=== PATIENT | female | born 1985 | race Asian ===

== ENCOUNTER 2023-09-22 09:00 | Outpatient (AMB) | payer OTHER, SELFPAY ==
[2023-09-22 09:01] VITALS: BP 110/74; BMI 24.2
--- NOTE | 2023-09-22 09:01 | MHC.OFFVIS ---
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 Patient reports that she is 38 years old she has never been but she has been trying to get for 10 years she was for about 8 years and did not get and she has been in a relationship that she says is a good 1 for the last year and has been trying to get but has not achieved it. She says she gets periods every 28 days they last 7 days her last period was September 15 and it just ended yesterday. Sometimes 1 month it will be very heavy with clots and some months it has a little bit sewing trimmer. She says she has gone to places in [place] and it sounded like [facility] in [place] but that was unclear as she was having trouble remembering the name of the place and it later sounded like she was trying to describe [facility] in various different sites including [place] and [place]. She said she had pre cancerous cells gynecological but she said the last 2 Pap smears were good. She tells me she is bipolar with depression and was just hospitalized for 10 days at [facility] for this. She was started on new medications and she was told by the doctor that it would be good not to get just yet because the medications are new and strong. She missed a follow-up appointment for psychological counseling last week but she is going tomorrow to see her primary care provider and will be arranging the other follow-up appointment or it may have already been arranged but that is in [place]. 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 She has been trying to get for years and this is her main concern today. I informed her that we do not have for infertility services here but that [facility] the system she was referred from does have infertility services and that that is where she needs to be referred to and that she should probably not waste anymore time but she should be seen there how ever I recommend that she use condoms right now in the meantime until such time as she is stable on her new psych medications and it is clear from the prescribing physician that that would be a permissible thing to do on the particular medication she may be on at the time. I informed the patient that I would place a referral but it would probably not go through as that probably needs to come from her primary care provider in the 1st place but I will place that today as a guide for her primary care provider. She needs to be referred to [facility] reproductive endocrinology. System was reviewed and there are no records of any Pap smear anywhere so even though she says her last Pap smear was negative with her history of precancerous cells and the fact that we do not have records I am going to proceeding do a Pap smear as well as testing for STIs today. [facility] Surgical History (Updated 09/22/23 @ 09:06 by Bhumi Cherry MA) [place] teeth removed Family History (Updated 09/22/23 @ 09:06 by Bhumi Cherry MA) Paternal Grandfather Throat cancer Social History (Updated 09/22/23 @ 09:05 by Bhumi Cherry MA) Household Members: Significant Other Housing: House Alcohol intake: current Alcohol intake frequency: holidays/special occasions only e-Cigarette/Vaping Use: Currently Using Female Reproductive History Menstrual Age of Menarche: 17 Duration of menses: 6-7 days Date of last menstrual period: 09/14/23 control method: none Total pregnancies: 0 History of abnormal pap smear: Yes Physical Exam Vital Signs: Last Vital Signs BP 110/74 09/22/23 09:01 BMI result Body Mass Index 24.2 Const General: healthy appearing, comfortable, no acute distress, well developed and alert Nutritional Appearance: average body habitus Orientation/consciousness: patient oriented x3 Limitations: no limitations HEENT Head: Yes normocephalic Neck Neck: Yes normal visual inspection Thyroid: Thyroid normal Chest Chest palpation & inspection: normal inspection of the chest Breast/axilla inspection: normal inspection of the breasts and normal inspection of the axillae Breast/axilla palpation: normal palpation of the breasts and normal palpation of the axillae Resp Effort & Inspection: normal respiratory effort GI Inspection: Yes normal to inspection, No Abdominal wall edema and No distended Palpation (GI): Soft to palpation and nontender Other: Vagina pink moist cervix nulliparous pink moist smooth Pap done cultures taken uterus anteverted mobile nontender adnexa nontender good tone with Kegel General: Yes bladder normal to palpation External Female Exam: normal external appearance and normal appearance of the urethra Speculum Exam - Vagina: normal appearance of the vagina, normal palpation and normal vaginal discharge Speculum Exam - Cervix: normal appearance of the cervix, normal palpation and nontender Bimanual exam- vagina & uterus: normal bimanual exam, normal palpation, uterine size normal, bladder normal to palpation, consistency normal, normal palpation, uterine mobility normal, uterine shape normal, No Cervical tenderness present, non-tender and no cervical motion tenderness Bimanual Exam- Adnexa, other: normal adnexae, no masses, normal and No adnexal tenderness Neuro General: patient oriented x3 Results Reviewed Results Reviewed: There are no pertinent results available for this patient in the system. There is the primary care note from May from [place] Assessment & Plan Assessment & Plan (1) Encounter for well woman exam with routine gynecological exam: Code(s): Z01.419 - Encounter for gynecological examination (general) (routine) without abnormal findings (2) Hx of infertility: Code(s): Z87.42 - Personal history of other diseases of the female genital tract (3) Hx of abnormal cervical Pap smear: Code(s): Z87.42 - Personal history of other diseases of the female genital tract Plan Patient has been referred here from her primary care provider in [facility] system. Patient reports that she is 38 years old she has never been but she has been trying to get for 10 years she was for about 8 years and did not get and she has been in a relationship that she says is a good 1 for the last year and has been trying to get but has not achieved it. She says she gets periods every 28 days they last 7 days her last period was September 15 and it just ended yesterday. Sometimes 1 month it will be very heavy with clots and some months it has a little bit sewing trimmer. She says she has gone to places in [place] and it sounded like [facility] in [place] but that was unclear as she was having trouble remembering the name of the place and it later sounded like she was trying to describe planned parenthood in various different sites including [place] and [place]. She said she had pre cancerous cells gynecological but she said the last 2 Pap smears were good. She tells me she is bipolar with depression and was just hospitalized for 10 days at [facility] for this. She was started on new medications and she was told by the doctor that it would be good not to get just yet because the medications are new and strong. She missed a follow-up appointment for psychological counseling last week but she is going tomorrow to see her primary care provider and will be arranging the other follow-up appointment or it may have already been arranged but that is in [place]. 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 She has been trying to get for years and this is her main concern today. I informed her that we do not have for infertility services here but that [facility] the system she was referred from does have infertility services and that that is where she needs to be referred to and that she should probably not waste anymore time but she should be seen there how ever I recommend that she use condoms right now in the meantime until such time as she is stable on her new psych medications and it is clear from the prescribing physician that that would be a permissible thing to do on the particular medication she may be on at the time. I informed the patient that I would place a referral but it would probably not go through as that probably needs to come from her primary care provider in the 1st place but I will place that today as a guide for her primary care provider. She needs to be referred to [facility] reproductive endocrinology. System was reviewed and there are no records of any Pap smear anywhere so even though she says her last Pap smear was negative with her history of precancerous cells and the fact that we do not have records I am going to proceeding do a Pap smear as well as testing for STIs today. ----- Patient was referred here,(to [facility]) from a [facility] practice, however we do not have infertility services. Patient is 38 years old and says she has been trying to get for more less 10 years. She has regular cycles. Referral was placed to [facility] reproductive Medicine however her primary probably needs to be the 1 to make the official referral I have written this down on a piece of paper for the patient in case her records do not arrive at her primary care provider tomorrow when she has an appointment with that provider and I stressed the importance of her asking that provider for the referral. In addition and most importantly I asked the patient to actually refrain from getting at the this moment until she is very stable on her new medications and gets the all clear from the psychiatric prescriber that it is okay to get on the particular meds and doses that she has just been prescribed for her bipolar depression. The patient assures me she has in a stable relationship and things are good and she does understand but she has been trying for 10 years and wants to have a baby. I asked her to continue to keep track of her cycle as she does and also to start paying attention to the middle of her cycle to see if she has ovulatory symptoms that correspond with that time as well. Pap smear was done as well as testing for gonorrhea chlamydia trichomoniasis Gardnerella and Nicolette. No other testing was done I did prescribe her vitamins that she could be taking before conception. Orders: Orders Bacterial Vaginosis Panel Today Z01.419 - Encounter for gynecological examination (general) (routine) without abnormal findings Pap Smear Today Z01.419 - Encounter for gynecological examination (general) (routine) without abnormal findings CT NG by PCR Today Z.419 - Encounter for gynecological examination (general) (routine) without abnormal findings Referrals Infertility Reproductive Referral (female) Z87.42 - Personal history of other diseases of the female genital tract Medications: New PNV,calcium [id number] acid 27 mg iron- 1 mg ( Vitamins Plus Low Iron) 1 tab PO DAILY 90 tabs 0RF Coding Level of Care Code New Pt Prev Care 18-39yr([id number] Diagnoses Encounter for well woman exam with routine gynecological exam Z01.419 Hx of infertility Z87.42 Hx of abnormal cervical Pap smear Z87.42
== END 2023-09-22 10:24 | disposition home or self-care (01) ==
LOC: HO.HWSM 09:00
PROVIDERS: Visit Provider Advanced Practice Midwife
DX: Z01.419 Encounter for gynecological examination (general) (routine) without abnormal findings (principal); Z87.42 Personal history of other diseases of the female genital tract
CPT/HCPCS: 99385

== ENCOUNTER 2023-09-22 09:00 | Outpatient (REF) | payer OTHER, SELFPAY ==
[2023-09-23 02:42] LABS: CT PCR NOT DETECTED (Not Detect.); NG PCR NOT DETECTED (Not Detect.)
[2023-09-23 14:00] LABS: BV Int Neg Control Negative (Negative); BV Int Pos Control Positive (Positive)
[2023-09-29 21:30] LABS: HPV 16 RNA DETECTED (NOT DETECTED); HPV mRNA E6/E7 rflx Detected (Not Detected)
== END 2023-09-22 09:01 | disposition home or self-care (01) ==
LOC: HO.LNP 09:00
PROVIDERS: Visit Provider Advanced Practice Midwife
DX: Z01.419 Encounter for gynecological examination (general) (routine) without abnormal findings (principal); Z87.42 Personal history of other diseases of the female genital tract; Z79.899 Other long term (current) drug therapy
CPT/HCPCS: 0353U; 87480; 87510; 87624; 87625; 87660; 88142; 99385

== ENCOUNTER 2023-11-29 12:24 | Outpatient (REF) | payer OTHER, SELFPAY | END 2023-11-29 12:25 | disposition home or self-care (01) | LOC: HO.LNP 12:24 | PROVIDERS: Visit Provider Obstetrics & Gynecology | DX: R87.611 Atypical squamous cells cannot exclude high grade squamous intraepithelial lesion on cytologic smear of cervix (ASC-H) (principal); Z32.02 Encounter for pregnancy test, result negative | CPT/HCPCS: 57454; 81025; 88305; 88342; 88360 ==

== ENCOUNTER 2023-11-29 12:24 | Outpatient (AMB) | payer OTHER, SELFPAY ==
[2023-11-29 12:45] VITALS: BP 114/70; BMI 24.2
--- NOTE | 2023-11-29 12:45 | A.OFFVIS_ITS ---
Intake Vital Signs 11/29/23 12:45 Height 5 ft Weight 124 lb BMI 24.2 BP 114/70 Intake Visit Reasons: Colposcopy Phone Engineer Required: No Information Interpreted: non-clinical & clinical Well Point Pumping Supervisor: Well Point Pumping Supervisor Present (Aidyn) Allergies ibuprofen [From Advil] Allergy (Intermediate, Verified 11/29/23 12:46) Nausea Post menopausal: No Patient : No HPI HPI Comments History of Present Illness Details Presenting for colposcopy for ASCUS can not rule out high-grade lesion HPV E6/E7 positive, HPV 16 positive, HPV 18/45 negative PFSH Surgical History [place] teeth removed Family History Paternal Grandfather Throat cancer Social History Household Members: Significant Other Housing: House Alcohol intake: current Alcohol intake frequency: holidays/special occasions only e-Cigarette/Vaping Use: Currently Using Patient : No Female Reproductive History Menstrual Age of Menarche: 17 control method: none Date of last pap smear: 09/23/23 (ASCUS +HPV) History of abnormal pap smear: Yes Physical Exam Vital Signs: Last Vital Signs BP 114/70 11/29/23 12:45 BMI result Body Mass Index 24.2 Office Procedures Colposcopy Before the procedure was started discussed with the patient the procedure, alternatives & all the risks associated with the procedure (bleeding, infection, injury to vagina, bladder, vessels, possible need for transfusion with all its risks) then patient signed the consent UPT done in the office & negative Pap smear = ASCUS can not rule out high-grade lesion HPV E6/E7/16 positive, HPV 16/45 negative Speculum inserted, acetic acid used Colposcopy done Transformation zone seen, acetowhite lesions identified at 6 +7+9+11+12+1+3+5 o?clock, cervical biopsies taken from 6+7+9+11+12+1+3+5 o?clock, ECC done afterwards. Vaginoscopy of the upper vagina showed no evidence of any aceto-white lesions Monsel solution used for hemostasis. The patient tolerated well . At the end the patient was instructed to call if temp>100.4, abdominal pain, n/v, bleeding; The patient was given the following instructions: nothing per vagina, no intercourse or bath tub use. All questions answered the patient verbalized understanding. Instructed the patient to make an appointment in 2 weeks for follow-up This note was generated with a voice recognition program. Some errors may have been overlooked during the review of this note. Sometimes these errors may affect the content or meaning of a given sentence. [id number] of cervix including upper vagina with biopsy and ECC Procedure code (CPT) selection complete Results AMB Test Urine AMB Test Urine Negative Last Edit by LANI Santoro on 11/29/23 12:47 Results Reviewed Results Reviewed: Laboratory Last Values [facility] Clinic Negative 11/29/23 12:47 Assessment & Plan Assessment & Plan (1) Pap smear of cervix with ASCUS, cannot exclude HGSIL: Comment: HPV E6/E7/16 positive HPV 18/45 negative Code(s): R87.611 - Atypical squamous cells cannot exclude high grade squamous intraepithelial lesion on cytologic smear of cervix (ASC-H) Plan: Discussed with the patient the result of her abnormal pap, its significance, risk of progression, persistence, and regression. the false positive/negative rate of a Pap smear as a screening test in detecting cervical cancer and the indication for a diagnostic test -colposcopy, biopsy, endocervical curettage. Colpo/ECC/biopsy done, see procedure note. The patient verbalized understanding and agreed with the plan, all questions answered. Orders: Orders AMB HCG Urine Test Today Z32.02 - Encounter for test, result negative AMB Colposcopy Today R87.611 - Atypical squamous cells cannot exclude high grade squamous intraepithelial lesion on cytologic smear of cervix (ASC-H) Coding Level of Care Code Procedure Only Diagnoses Pap smear of cervix with ASCUS, cannot exclude HGSIL R87.611 CPT Codes Colposcopy - CPT: 04759-Aewysilnb of cervix including upper vagina with biopsy and ECC ([id number])
== END 2023-11-29 13:25 | disposition home or self-care (01) ==
LOC: HO.HWS 12:24
PROVIDERS: Visit Provider Obstetrics & Gynecology
DX: R87.611 Atypical squamous cells cannot exclude high grade squamous intraepithelial lesion on cytologic smear of cervix (ASC-H) (principal); Z32.02 Encounter for pregnancy test, result negative
CPT/HCPCS: 57454

== ENCOUNTER 2023-12-14 13:03 | Outpatient (AMB) | payer OTHER, SELFPAY ==
--- NOTE | 2023-12-14 13:18 | MHC.OFFVIS ---
Vital Signs 12/14/23 13:22 Height 5 ft Weight 123 lb 7.342 oz BMI 24.1 BP 102/60 Intake Visit Reasons: pre op Instructional Material Director Required: Yes Instructional Material Director Language: Cocoa Bean Cleaner Name: Kailyn [id number] Information Interpreted: non-clinical & clinical Cutter Grinder Operator: Cutter Grinder Operator Present Accompanied by: Self / Same As Patient Allergies ibuprofen [From Advil] Allergy (Intermediate, Verified 12/14/23 13:23) Nausea Is last menstrual period known: Yes Last menstrual period: 12/10/23 Post menopausal: No Patient : No Do you need a note to return to daycare/school/sports/work: Yes (for surgery on tuesday) HPI Comments Details: Presenting post colpo for follow-up. The patient is doing well with no complaints. The pathology showed the following: A. Endocervix, curettage: Endocervical glandular and squamous mucosa with marked inflammation and reactive squamous metaplasia; negative for dysplasia. B. Cervix, 1:00, biopsy: Endocervical glandular and squamous epithelium with marked inflammation and focal reactive squamous metaplasia; negative for dysplasia. C. Cervix, 3:00, biopsy: Endocervical glandular mucosa with marked inflammation and squamous metaplasia; negative for dysplasia. D. Cervix, 5:00, biopsy: Inflammatory debris only; no tissue present for evaluation. E. Cervix, 6:00, biopsy: Endocervical glandular mucosa with marked inflammation and scant squamous epithelium; negative for dysplasia. F. Cervix, 7:00, biopsy: Endocervical glandular and squamous mucosa with marked inflammation and reactive changes; negative for dysplasia. G. Cervix, 9:00, biopsy: Endocervical glandular and squamous mucosa with marked inflammation and reactive changes; negative for dysplasia. H. Cervix, 11:00, biopsy: High-grade squamous intraepithelial lesion (moderate-severe dysplasia, PARAMJIT 2-3), involving endocervical glands, with inflammation. I. Cervix, 12:00, biopsy: Endocervical glandular and squamous mucosa with marked inflammation and reactive epithelial changes; negative for dysplasia. Comment: The patient's previous Pap test with atypical squamous cells-cannot rule out a high-grade lesion ([id number]) concur with the current biopsy [facility] Surgical History [place] teeth removed Family History Paternal Grandfather Throat cancer Social History Household Members: Significant Other Housing: House Alcohol intake: current Alcohol intake frequency: holidays/special occasions only e-Cigarette/Vaping Use: Currently Using Female Reproductive History Menstrual Age of Menarche: 17 Date of last menstrual period: 12/10/23 Total pregnancies: 2 Full term: 2 Review of Systems Card Reports as per HPI and Reports no additional complaints Resp Reports as per HPI and Reports no additional complaints GI Reports as per HPI and Reports no additional complaints Reports as per HPI Physical Exam Vital Signs: Last Vital Signs BP 102/60 12/14/23 13:22 BMI result Body Mass Index 24.1 Const General: cooperative, healthy appearing and comfortable Resp Effort & Inspection: normal respiratory effort Auscultation: clear to auscultation bilaterally Percussion: percussion normal Cardio Palpation: normal PMI Rate: regular rate Rhythm: regular rhythm Heart sounds: no murmurs and no rubs Peripheral pulses: Peripheral pulses 2+ throughout GI Inspection: Yes normal to inspection Palpation (GI): Soft to palpation, nontender, no guarding, not rigid and No hepatosplenomegaly present Percussion: Yes normal to percussion Auscultation: normal bowel sounds Rectal Exam - Female: deferred Assessment & Plan Assessment & Plan (1) PARAMJIT III (cervical intraepithelial neoplasia grade III) with severe dysplasia: Code(s): D06.9 - Carcinoma in situ of cervix, unspecified Category: Medical Plan: Discussed with the patient the pathology results of the colposcopy biopsies & endocervical curettage ( moderate dysplasia-PARAMJIT 2-3). Discussed with the patient the sensitivity specificity, positive and negative predictive value in detecting cervical cancer in addition discussed the regression, persistence and progression rates. Addition discussed with the patient the risk of progression to cancer and impact of excision procedure on her future . Per ASCCP guidelines, 2 options of management were discussed with the patient including either observation with HPV based screening and colposcopy biopsy at 6 months and 12 months versus a diagnostic excisional procedures, which is the preferred method of management. The patient is concerned more about the progression of PARAMJIT 2-3 to cancer than the excisional procedure impact on her future and she decided to proceed with a LEEP, possible cone with post cone ECC. Discussed with the patient the procedure, its benefits and risks including bleeding, infection, possible need for blood transfusion with all its risk ( HIV, syphilis, Hepatitis, anaphylaxis shock, others..), injury to bladder, rectum, possible re-excision for positive margins, potential need for hysterectomy, possible future negative impact on fertility including ( cervical stenosis, incompetence , increase risk for c section 2ndary to cervical scarring and failure of dilatation), possible positive margin necessitating re-excision. Also discussed the patient options of anesthesia either paracervical block versus IV sedation/MAC, prefers to proceed with IV sedation/MAC. All questions answered, the patient verbalized understanding and signed the consent. Coding Level of Care Code Est Pt Level 3 (99505) Diagnoses PARAMJIT III (cervical intraepithelial neoplasia grade III) with severe dysplasia D06.9
[2023-12-14 13:22] VITALS: BP 102/60; BMI 24.1
== END 2023-12-14 15:26 | disposition home or self-care (01) ==
PROVIDERS: Visit Provider Obstetrics & Gynecology
DX: D06.9 Carcinoma in situ of cervix, unspecified (principal)
CPT/HCPCS: 99213

== ENCOUNTER → 2023-12-14 13:03 | Outpatient (BNVA) | payer OTHER, SELFPAY | PROVIDERS: Visit Provider Obstetrics & Gynecology | DX: D06.9 Carcinoma in situ of cervix, unspecified (principal) | CPT/HCPCS: 99212 ==

== ENCOUNTER 2023-12-26 09:52 | Outpatient (AMB) | payer OTHER, SELFPAY ==
--- NOTE | 2023-12-26 09:52 | MHC.OFFVIS ---
Intake Visit Reasons: Questions about procedure Retail Customer Service Representative Required: No Information Interpreted: non-clinical & clinical Allergies ibuprofen [From Advil] Allergy (Intermediate, Verified 12/26/23 09:52) Nausea HPI Comments Details: The patient is schedule a telehealth visit to discuss the procedure LEEP possible LEEP cone with post cone ECC for PARAMJIT 2-3 on cervical biopsy. The patient already signed her surgical consent last visit but has few more questions regarding the procedure PFSH Surgical History [place] teeth removed Family History Paternal Grandfather Throat cancer Social History Household Members: Significant Other Housing: House Alcohol intake: current Alcohol intake frequency: holidays/special occasions only e-Cigarette/Vaping Use: Currently Using Female Reproductive History Menstrual Age of Menarche: 17 Review of Systems Const All systems reviewed & are unremarkable except as noted in HPI and below Reports as per HPI and Reports no additional complaints GI Reports no additional complaints Reports no additional complaints Telehealth Telehealth Telehealth Platform: Telephone Location of provider rendering services: practice address Location of patient: address on file Patient Identification confirmed using: Name, : Yes Telehealth method: video Patient verbally consented to treatment: Yes Patient verbally consented to billing insurance company: Yes Patient informed of any privacy concerns related to visit: Yes Assessment & Plan Assessment & Plan (1) PARAMJIT III (cervical intraepithelial neoplasia grade III) with severe dysplasia: Code(s): D06.9 - Carcinoma in situ of cervix, unspecified Category: Medical Plan: Discussed with the patient the risk of PARAMJIT 2-3, persistence, progression and regression rates, an options of treatment in addition discussed with the patient the procedure, LEEP possible LEEP cone with post cone ECC, its benefits and risks. Also discussed the patient options of anesthesia either paracervical block versus IV sedation/MAC, prefers to proceed with IV sedation/MAC. All questions answered, the patient verbalized understanding and would like to proceed with the scheduled procedure. I spent a total of 20 minutes reviewing the chart, talking to the patient via video and documenting in the medical record. Coding Level of Care Code Tele Est Pt Level 1 (75930) Diagnoses PARAMJIT III (cervical intraepithelial neoplasia grade III) with severe dysplasia D06.9
== END 2023-12-26 12:11 | disposition home or self-care (01) ==
LOC: HO.HWS 09:52
PROVIDERS: Visit Provider Obstetrics & Gynecology
DX: D06.9 Carcinoma in situ of cervix, unspecified (principal)
CPT/HCPCS: 99211

== ENCOUNTER → 2023-12-26 09:52 | Outpatient (BNVA) | payer OTHER, SELFPAY | PROVIDERS: Visit Provider Obstetrics & Gynecology ==

== ENCOUNTER 2024-02-08 16:14 | Outpatient (AMB) | payer OTHER, SELFPAY ==
--- NOTE | 2024-02-08 16:16 | MHC.OFFVIS ---
Vital Signs 02/08/24 16:28 Height 5 ft Weight 123 lb 7.342 oz BMI 24.1 BP 116/64 Intake Visit Reasons: pre op Seed Buyer Required: Yes Seed Buyer Language: Certified Massage Therapist Name: Scottie #[id number] Information Interpreted: non-clinical & clinical Plaster Maker: Plaster Maker Present Allergies ibuprofen [From Advil] Allergy (Intermediate, Verified 12/26/23 09:52) Nausea Is last menstrual period known: Yes Last menstrual period: 06/19/20 Post menopausal: No Patient : No Do you need a note to return to daycare/school/sports/work: Yes (for surgery on tuesday) HPI Comments Details: Presenting post colpo for follow-up. Pap smear was ascus-H HPV E6/E7 positive, HPV 16 positive, 18/45 negative. The patient is doing well with no complaints. The pathology showed the following: A. Endocervix, curettage: Endocervical glandular and squamous mucosa with marked inflammation and reactive squamous metaplasia; negative for dysplasia. B. Cervix, 1:00, biopsy: Endocervical glandular and squamous epithelium with marked inflammation and focal reactive squamous metaplasia; negative for dysplasia. C. Cervix, 3:00, biopsy: Endocervical glandular mucosa with marked inflammation and squamous metaplasia; negative for dysplasia. D. Cervix, 5:00, biopsy: Inflammatory debris only; no tissue present for evaluation. E. Cervix, 6:00, biopsy: Endocervical glandular mucosa with marked inflammation and scant squamous epithelium; negative for dysplasia. F. Cervix, 7:00, biopsy: Endocervical glandular and squamous mucosa with marked inflammation and reactive changes; negative for dysplasia. G. Cervix, 9:00, biopsy: Endocervical glandular and squamous mucosa with marked inflammation and reactive changes; negative for dysplasia. H. Cervix, 11:00, biopsy: High-grade squamous intraepithelial lesion (moderate-severe dysplasia, PARAMJIT 2-3), involving endocervical glands, with inflammation. I. Cervix, 12:00, biopsy: Endocervical glandular and squamous mucosa with marked inflammation and reactive epithelial changes; negative for dysplasia. Comment: The patient's previous Pap test with atypical squamous cells-cannot rule out a high-grade lesion ([id number]) concur with the current biopsy [facility] Medical History (Updated 12/26/23 @ 11:44 by Rosio Barboza RN) GERD (gastroesophageal reflux disease) Hx of infertility Surgical History [place] teeth removed Family History Paternal Grandfather Throat cancer Social History Household Members: Significant Other Housing: House Alcohol intake: current Alcohol intake frequency: holidays/special occasions only e-Cigarette/Vaping Use: Currently Using Female Reproductive History Menstrual Age of Menarche: 17 Date of last menstrual period: 06/19/20 Total pregnancies: 2 Full term: 2 Review of Systems Card Reports as per HPI and Reports no additional complaints Resp Reports as per HPI and Reports no additional complaints GI Reports as per HPI and Reports no additional complaints Reports as per HPI Physical Exam Const General: cooperative, healthy appearing and comfortable Resp Effort & Inspection: normal respiratory effort Auscultation: clear to auscultation bilaterally Percussion: percussion normal Cardio Palpation: normal PMI Rate: regular rate Rhythm: regular rhythm Heart sounds: no murmurs and no rubs Peripheral pulses: Peripheral pulses 2+ throughout GI Inspection: Yes normal to inspection Palpation (GI): Soft to palpation, nontender, no guarding, not rigid and No hepatosplenomegaly present Percussion: Yes normal to percussion Auscultation: normal bowel sounds Rectal Exam - Female: deferred Assessment & Plan Assessment & Plan (1) PARAMJIT III (cervical intraepithelial neoplasia grade III) with severe dysplasia: Code(s): D06.9 - Carcinoma in situ of cervix, unspecified Category: Medical Plan: Discussed with the patient the pathology results of the colposcopy biopsies & endocervical curettage ( severe dysplasia-PARAMJIT 2-3). Discussed with the patient the sensitivity specificity, positive and negative predictive value in detecting cervical cancer in addition discussed the regression, persistence and progression rates. Addition discussed with the patient the risk of progression to cancer and impact of excision procedure on her future . Recommended excisional procedures, LEEP possible cone with post cone ECC. Discussed with the patient the procedure, its benefits and risks including bleeding, infection, possible need for blood transfusion with all its risk ( HIV, syphilis, Hepatitis, anaphylaxis shock, others..), injury to bladder, rectum, possible need for re-excision or hysterectomy for positive margins, potential need for hysterectomy, possible future negative impact on fertility including ( cervical stenosis, incompetence , increase risk for c section 2ndary to cervical scarring and failure of dilatation). ). Also discussed the patient options of anesthesia either paracervical block versus IV sedation/MAC, prefers to proceed with IV sedation/MAC . All questions answered, the patient verbalized understanding and signed the consent. Instructions given to patient to schedule a postop appointment. Coding Level of Care Code Est Pt Level 3 (13076) Diagnoses PARAMJIT III (cervical intraepithelial neoplasia grade III) with severe dysplasia D06.9
[2024-02-08 16:28] VITALS: BP 116/64; BMI 24.1
== END 2024-02-08 16:42 | disposition home or self-care (01) ==
LOC: HO.HWS 16:14
PROVIDERS: Visit Provider Obstetrics & Gynecology
DX: D06.9 Carcinoma in situ of cervix, unspecified (principal)
CPT/HCPCS: 99213

== ENCOUNTER → 2024-02-08 16:14 | Outpatient (BNVA) | payer OTHER, SELFPAY | PROVIDERS: Visit Provider Obstetrics & Gynecology | DX: D06.9 Carcinoma in situ of cervix, unspecified (principal) | CPT/HCPCS: 99212 ==

== ENCOUNTER 2024-02-17 12:51 | Day surgery (SDC) | payer OTHER, SELFPAY ==
--- NOTE | 2024-02-15 14:10 | HO.ANESPROP2 ---
Documented by User: Chica Farris NP 02/15/24 14:10 HPI - Anesthesia Eval Consult details Narrative: 38yo F for LEEP,poss loop electric excision,poss loop electrical,cone and post endocervical curettage PMFSH Active Problems Active Problems: All Active Problems PARAMJIT III (cervical intraepithelial neoplasia grade III) with severe dysplasia (Acute) Pap smear of cervix with ASCUS, cannot exclude HGSIL (Acute) Hx of abnormal cervical Pap smear (Acute) Hx of infertility (Acute) Past Medical History Medical History GERD (gastroesophageal reflux disease) Hx of infertility Family History Family History Paternal Grandfather Throat cancer Surgical History Surgical History [place] teeth removed Social History Social History Household Members: Significant Other Housing: House Alcohol intake: current Alcohol intake frequency: holidays/special occasions only e-Cigarette/Vaping Use: Currently Using Meds Allergies Allergy/AdvReac Type Severity Reaction Status Date / Time ibuprofen [From Advil] Allergy Intermediate Nausea Verified 12/26/23 09:52 Home Medications ?Medication ?Instructions ?Recorded ?Confirmed ?Last Taken ?Type hydroxyzine pamoate 50 mg capsule 50 mg PO BID PRN Anxiety 09/22/23 12/26/23 Unknown History quetiapine 200 mg tablet 200 mg PO BEDTIME 09/22/23 12/26/23 Unknown History sertraline 25 mg tablet 25 mg PO DAILY 09/22/23 12/26/23 Unknown History famotidine 20 mg tablet 20 mg PO BID PRN acid reflux 12/26/23 12/26/23 Unknown History Assessment and Plan Assessment Anesthesia Assessment: Chart Reviewed Documented by User: Tia Herrera MD 02/17/24 11:43 [facility] Past Medical History Medical History GERD (gastroesophageal reflux disease) Hx of infertility Family History Family History Paternal Grandfather Throat cancer Family history of problems with anesthesia: No Surgical History Surgical History [place] teeth removed History of Problems with Anesthesia: No Social History Social History Household Members: Significant Other Housing: House Alcohol intake: current Alcohol intake frequency: holidays/special occasions only e-Cigarette/Vaping Use: Currently Using Meds Allergies Allergy/AdvReac Type Severity Reaction Status Date / Time ibuprofen [From Advil] Allergy Intermediate Nausea Verified 12/26/23 09:52 Home Medications ?Medication ?Instructions ?Recorded ?Confirmed ?Last Taken ?Type hydroxyzine pamoate 50 mg capsule 50 mg PO BID PRN Anxiety 09/22/23 12/26/23 Unknown History quetiapine 200 mg tablet 200 mg PO BEDTIME 09/22/23 12/26/23 Unknown History sertraline 25 mg tablet 25 mg PO DAILY 09/22/23 12/26/23 Unknown History famotidine 20 mg tablet 20 mg PO BID PRN acid reflux 12/26/23 12/26/23 Unknown History Exam Airway Mallampati Class: II TM Dist: >3cm Neck ROM: Full Heart: rrr Lungs: cta Assessment and Plan Assessment Anesthesia Assessment: Anesthesia Plan Discussed Final Anesthetic Review Family History of Problems with Anesthesia: No History of Problems with Anesthesia: No NPO: Yes ASA Class: III Final Preanesthetic Review: No Changes in Pt Med Stat, Meds/Allgs Chart Reviewed, Consent Obtained/Reviewed and Anes Risks/Benef Reviewed Patient Risk: Low Procedure Risk: Low Anesthetic Plan Anesthetic Plan: GA Disposition: Standard PACU
[2024-02-17] VITALS (8 sets, daily range): BP systolic 102–117; BP diastolic 53–72; PULSE 62–86; RESP 12–18; TEMP 36.2–36.9; O2SAT 97–100; BMI 24.2
[2024-02-17 13:07] LABS: UPreg QC Valid YES; Urine Pregnancy NEGATIVE (NEGATIVE)
[2024-02-17] MEDS: Lactated Ringers 1,000 ML 100 ML IVCONT (13:20)
--- NOTE | 2024-02-17 13:46 | PC.NURSE ---
pt sts she doesnot resp tx ls clear resp easy and reg vape last night
--- NOTE | 2024-02-17 13:54 | MHC.SHP ---
Pre-Procedural Eval Section A - 24 Hr Update-Section A only Date of Service: 02/17/24 The patient is an INPATIENT: No Changes since office visit: No Cold of Flu in the past 2 weeks, No New Medical Problems, No Changes in Medication and No Patient answered all questions The patient has been examined within 24 hours of the surgical procedure. The History & Physical has been completed within 30 days and I have reviewed it.: Yes Section B - Complete if H&P > 30 days Chief Complaint: Carcinoma in situ of cervix, unspecified Allergies: Allergies Allergy/AdvReac Type Severity Reaction Status Date / Time ibuprofen [From Advil] Allergy Intermediate Nausea Verified 12/26/23 09:52 Plan Diagnosis/Plan: Unchanged I have reviewed the history and physical and performed a pertinent physical examination on my patient. No changes have occurred unless specified. Time Spent With Patient Time: Total time managing care of this patient today ____ minutes.
--- NOTE | 2024-02-17 14:06 | PC.NURSE ---
dr loza at bedside pt requested set up / operator for anesthesia mahsa used pt verbalized understanding also will to have resp tx after anaesthesia spoke to her concerning the need because patients vapes daily. aware careplan
[2024-02-17] MEDS: Albuterol/Iprat 2.5/0.5MG 3 ML AMPUL.NEB INHALE (14:09)
--- NOTE | 2024-02-17 14:39 | P.OP_ITS ---
Operative Note Operative Note Date of Service: 02/17/24 Narrative: Pre op diagnosis: PARAMJIT 2-3 Operation: Colposcopy, Loop electrical excision procedure cone, top hat endocervical excision, post cone ECC Postop diagnosis: the same Quantitative blood loss: 10 cc Surgeon: Jose Armando Easton MD, FACOG [id number] Armor Crewman: None Pathology: Cervical cone, top-hat and endo cervical excision, endo cervical curettage Complications: none Anesthesia: GLMA and Para cervical block Procedure: The patient was put in a dorsal lithotomy position, scrubbed and draped in the usual sterile fashion. A speculum was inserted inside the patient's vagina. The cervix is assessed using the colposcope with acetic acid , the lesions were seen, and at least 1 cm of the squamocolumnar junction was observed. 20 x 5 mm size loop was selected based upon the diameter of the lesion. Lugol solution was used to outline the lesions and area of the transformation zone order to be removed 10 cc of xylocaine with epinephrine were injected submucosally into the surface of the cervix (ectocervix) at the 3, 6, 9, and 12 o'clock positions. The electrosurgical generator is set at 40 mantilla on blend 1. The loop is carefully passed simultaneously around and under the transformation zone, in order to ensure excising it making sure the lesion is at least 5 mm far from the specimen margins . The loop was allowed to glide through the cervix from one side to the other, allowing the cutting current to divide the tissue. Additional tissue was excised from this area with a smaller-diameter loop , endo cervical top-hat excision and endocervical excision was performed An endo cervical curettage is performed following completion of excision, and hemostasis is obtained with a Ball electrode or regular tip cautery. At the end, Monsel's solution was applied to the cone bed. The patient tolerated the procedure well and, all instruments were taken out of the patient vaginal cavity, and the patient was transferred to the PACU in stable condition.
--- NOTE | 2024-02-17 14:39 | PM.OP ---
Brief Operative Note Date of Service: 02/17/24 Pre-op diagnosis: PARAMJIT 2-3 Post-op diagnosis: same Procedure: LEEP CONE top-hat excision, endocervical excision and post CONE ECC Surgeon: Jose Armando Easton MD Anesthesia: GLMA and other (Paracervical block) Was an [employer] Bi Developer used for this Procedure?: No Estimated blood loss (mL): 0 Pathology: other (Cervical cone, top-hat, endocervix, Post cone ECC) Condition: stable Disposition: other (Home)
== END 2024-02-17 15:38 | disposition home or self-care (01) ==
PROVIDERS: Nurse Practitioner; PCP Physician Assistant; Visit Provider Obstetrics & Gynecology
PROC: 0UBC7ZZ Excision of Cervix, Via Natural or Artificial Opening (ICD-10-PCS; CPT 57522; principal; 2024-02-17 14:40)
DX: D06.9 Carcinoma in situ of cervix, unspecified (principal); N97.9 Female infertility, unspecified; K21.9 Gastro-esophageal reflux disease without esophagitis; Z88.6 Allergy status to analgesic agent
CPT/HCPCS: 57461; 81025; 88305; 88307; 94640; J1100; J1885; J2250; J2405; J2704; J3010

== ENCOUNTER → 2024-02-17 12:51 | Outpatient (BNV) | payer OTHER, SELFPAY | PROVIDERS: PCP Physician Assistant; Visit Provider Obstetrics & Gynecology | DX: D06.9 Carcinoma in situ of cervix, unspecified (principal) | CPT/HCPCS: 57461 ==

== ENCOUNTER 2024-03-12 16:19 | Outpatient (AMB) | payer OTHER, SELFPAY ==
--- NOTE | 2024-03-12 16:20 | A.OFFVIS_ITS ---
Intake Visit Reasons: post op Information Interpreted: non-clinical & clinical Accompanied by: Significant Other Allergies ibuprofen [From Advil] Allergy (Intermediate, Verified 03/12/24 16:23) Nausea HPI Comments Details: The patient is presenting for follow-up post LEEP cone. The patient has no complaints. The pathology showed the following: A. Cervix, cone excision: - High-grade squamous intraepithelial lesion (PARAMJIT 2-3); focally extending to margin. - Endocervical epithelium within normal limits. B. Cervix, top hat, excision: Inflamed cervical transformation zone mucosa with reactive changes. C. Endocervix, excision: Mildly inflamed endocervical and cervical transformation zone mucosa with reactive changes. D. Endocervix, post cone, curettage: Endocervical and squamous epithelium within normal limits; mucoinflammatory material. Comment: The positive margin in part A is on a small fragment of detached tissue; it is impossible to determine if this is the endocervical or ectocervical margin PFSH Medical History GERD (gastroesophageal reflux disease) Hx of infertility Surgical History [place] teeth removed Family History Paternal Grandfather Throat cancer Social History Household Members: Significant Other Housing: House Alcohol intake: current Alcohol intake frequency: holidays/special occasions only Tobacco use type: Smokeless Tobacco e-Cigarette/Vaping Use: Currently Using Female Reproductive History Menstrual Age of Menarche: 17 Review of Systems Const All systems reviewed & are unremarkable except as noted in HPI and below Reports as per HPI and Reports no additional complaints GI Reports no additional complaints Reports no additional complaints Assessment & Plan Assessment & Plan (1) PARAMJIT III (cervical intraepithelial neoplasia grade III) with severe dysplasia: Comment: Status post LEEP cone with positive margins Code(s): D06.9 - Carcinoma in situ of cervix, unspecified Category: Medical Plan: Discussed with the patient the results pathology, positive margins, the sensitivity, specificity, false-positive and false-negative rate were discussed with the patient Discussed with the patient that studies have consistently shown that patients with positive margins after an excisional procedure, compared with negative margins, are at significantly higher risk for residual or recurrent disease. Recurrence can occur years after treatment; Recommended repeat LEEP cone with post cone ECC. All the pros and cons and risks and benefits each were discussed with the patient and the patient decided to proceed with re-excision LEEP cone with post cone ECC but would like to schedule it in 8 weeks. Will schedule pelvic exam to assess the feasibility of repeat LEEP and if so will proceed with scheduling LEEP cone with post cone ECC. Instructions given the patient to schedule a preop visit. All questions answered, the patient verbalized understanding Coding Level of Care Code Est Pt Level 3 (42425) Diagnoses PARAMJIT III (cervical intraepithelial neoplasia grade III) with severe dysplasia D06.9
== END 2024-03-12 18:49 | disposition home or self-care (01) ==
LOC: HO.HWS 16:19
PROVIDERS: PCP Physician Assistant; Visit Provider Obstetrics & Gynecology
DX: D06.9 Carcinoma in situ of cervix, unspecified (principal)
CPT/HCPCS: 99213

== ENCOUNTER → 2024-03-12 16:19 | Outpatient (BNVA) | payer OTHER, SELFPAY | PROVIDERS: PCP Physician Assistant; Visit Provider Obstetrics & Gynecology | DX: D06.9 Carcinoma in situ of cervix, unspecified (principal) | CPT/HCPCS: 99212 ==